=== PATIENT | female | born 1950 | race Caucasian/White ===

== ENCOUNTER 2019-05-09 18:10 | Emergency (ER) | payer OTHER, MEDICARE ==
[2019-05-09 18:18] VITALS: BMI 24.4
--- NOTE | 2019-05-09 18:22 | PDOC ---
History of Present Illness - General Chief Complaint: Nasal Bleeding Stated Complaint: NOSE BLEED Time Seen by Provider: 05/09/19 18:19 - History of Present Illness Initial Comments: Erlinda Wang is a 68 y/o female presenting today with nose bleed for 1 hour [employer]. Reports that she does not have nose bleeds, but she had one on Thursday and two on Thursday. Reports that these lasted around 10 minutes before stopping. Denies hx of bleeding disorder or heavy periods. Denies headache/dizziness. Denies chest pain/shortness of breath. Past History - Past Medical History Allergies/Adverse Reactions: Allergies Allergy/AdvReac Type Severity Reaction Status Date / Time No Known Allergies Allergy Verified 05/09/19 18:19 Home Medications: Ambulatory Orders NK [No Known Home Medication] 05/09/19 COPD: No - Psycho Social/Smoking Cessation Hx Smoking History: Never smoked Hx Alcohol Use: Yes (SOCIAL) Drug/Substance Use Hx: No Review of Systems - Review of Systems Constitutional: No: Chills, Fever HEENTM: Yes: Nose Bleeding. No: Nose Pain, Nose Congestion, Throat Pain, Throat Swelling, Mouth Pain, Difficulty Swallowing, Mouth Swelling Respiratory: No: Cough, Orthopnea, Shortness of Breath, Stridor Cardiac (ROS): No: Chest Pain, Edema ABD/GI: No: Abdominal Distended, Diarrhea *Physical Exam - Vital Signs Last Vital Signs Temp Pulse Resp BP Pulse Ox 108 H 20 182/120 H 98 05/09/19 18:11 05/09/19 18:11 05/09/19 18:11 05/09/19 18:11 - Physical Exam GENERAL: Awake, alert, and oriented to person/place/time, in no acute distress_ HEAD: No signs of trauma, normocephalic, atraumatic _ EYES: PERRLA, EOMI, sclera anicteric, conjunctiva clear_ ENT: Hearing grossly normal, nares patent, oropharynx clear without exudates. No uvular deviation. Moist mucosa. Bleeding from right nare. NECK: Normal ROM, supple, no lymphadenopathy, JVD, or masses_ LUNGS: No distress, speaks in full sentences, clear to auscultation bilaterally _ HEART: Regular rate and rhythm, normal S1 and S2, no murmurs appreciated, peripheral pulses normal and equal bilaterally._ EXTREMITIES: Normal inspection, Normal range of motion, no edema. No clubbing or cyanosis_ NEUROLOGICAL: Cranial nerves II through XII grossly intact. Normal speech, normal gait, no focal sensorimotor deficits _ SKIN: Warm, Dry, normal turgor, no rashes or lesions noted_ Medical Decision Making - Medical Decision Making 05/09/19 18:15 68F presenting today with nose bleed for the past hour. Reports that she had one on Thursday and two on Thursday. Made an appt with an ENT for tomorrow. Patient instructed to hold manual pressure on nose for 30 min while in the ED. Will reassess. 05/09/19 18:53 Pt reassessed. Bleeding from nose continues. Afrin spray applied. Will continue to hold pressure. 05/09/19 19:55 Pt reassessed. Silver nitrite cautery applied. Bleeding controlled. Plan to d/c home with ENT f/u tomorrow. All questions answered. Return precautions given. Pt verbalized understanding and agreement with plan. Discharge - Discharge Information Problems reviewed: Yes Clinical Impression/Diagnosis: Epistaxis Condition: Stable Disposition: HOME - Admission No - Follow up/Referral Referrals: Buddy Alfaro [Primary Care Provider] - Shaka Hamlin [Non Staff, Medical] - - Patient Discharge Instructions Patient Printed Discharge Instructions: DI for Nosebleed Additional Instructions: Please keep your follow up appointment with Dr. Hamlin (ENT) tomorrow. If you experience any new, worsening, or concerning symptoms, including worsening nose bleed, dizziness, nausea, or any other concerns, please return to the emergency room. - Post Discharge Activity
[2019-05-09] MEDS ORDERED: OXYMETAZOLINE 0.05% NASAL SOLUTION 15 ML BOTTLE NS ONE ×2 (18:38→18:39)
--- NOTE | 2019-05-09 18:57 | PDOC ---
Attending Attestation - Resident Resident Name: Anil Nichols - ED Attending Attestation I have performed the following: I have examined & evaluated the patient, The case was reviewed & discussed with the resident, I agree w/resident's findings & plan, Exceptions are as noted - HPI HPI: 05/09/19 18:56 68 years old with 3-day history of intermittent nosebleeds that have stopped during the episodes on the weekends today continues despite applying pressure Not on any anticoagulation no history of trauma well-appearing no apparent distress no other symptoms Insert my ROS statement - Physicial Exam PE: 05/09/19 18:56 Vitals: Triage Vital signs reviewed General Appearance: No acute distress, well nourished well developed, Head: Atraumatic, Nose: Nares patent bilaterally; active bleeding from right nostril Throat: Posterior oropharynx without erythema, mucous membranes moist, Neck: Supple; no Nucal rigidity Chest Wall: Nontender Cardiac: Regular rate and rhythym, no murmurs, no rubs, no gallops, Lungs: Clear to auscultation bilateral, good air movement bilaterally, Extremities: Full range of motion to all extremities, no cyanosis, clubbing, or edema Psych: Normal mood, normal affect - Medical Decision Making 05/09/19 18:56 Active nosebleed from right nare will apply pressure and reassess Reevaluation 655 still with bleeding. Will try Afrin and continued pressure if no improvement we will pack right nostril Dr. Noonan to follow up patient and reasses
--- NOTE | 2019-05-09 19:22 | PDOC ---
*Physical Exam - Vital Signs Last Vital Signs Temp Pulse Resp BP Pulse Ox 108 H 20 182/120 H 98 05/09/19 18:11 05/09/19 18:11 05/09/19 18:11 05/09/19 18:11 Medical Decision Making - Medical Decision Making 05/09/19 19:21 Patient signed out from Dr. Dyer at 7:00 PM pending epistaxis control. 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 she has had intermittent epistaxis x several days, which pt had attributed to blowing her nose with tissue. 05/09/19 19:21 Vital Signs Temp Pulse Resp BP Pulse Ox 108 H 20 182/120 H 98 05/09/19 18:11 05/09/19 18:11 05/09/19 18:11 05/09/19 18:11 initial vitals with tachy and hypertensive, in the setting of nosebleed removed some clots afrin sprays were already applied during ED visit 05/09/19 19:56 pt had spit out some blood clots, rt anterior epistaxis identified along the septum since bleeding had slowed down. silver nitrate applied, for cauterization monitored x 10-15 minutes, no rebleeding rpt VS still Hypertensive, but downtrending 162/115 HR improved, 105, downtrended instructed to get BP rechecked with primary, instructions provided as this is likely related to her episodes of epistaxis here, so the likely trigger otherwise asympttomatic, no further indication to treat. has ENT followup scheduled for tomorrow - Dr Hamlin avoid digital manipulation or nose blowing. no abx indicated Pt to be discharged in stable condition. Patient and family made aware of clinical impression, treatment recommendations and disposition plan, return precautions discussed (including but not limited to new or persistent/worsening symptoms, pain, fevers, or signs of infection, chest pain, respiratory distress, inability to tolerate oral intake, dehydration, syncope, or neurologic changes). Follow up with PMD and/or specialist as recommended, follow up information provided, take medications as instructed for duration of time. continue with supportive care, avoid triggers and precipitants. All questions answered to patient's satisfaction and expressed understanding and comfort with this. At the time of discharge, the patient is alert, clinically improved, tolerating po and verbalizes understanding of instructions, satisfied with the care received and felt comfortable with the plan. Patient does not suffer from an acute life- threatening medical condition at this time and is safe for outpatient follow- up. 05/09/19 20:04 Discharge - Discharge Information Problems reviewed: Yes Clinical Impression/Diagnosis: Epistaxis, Anterior epistaxis, Hypertension Condition: Improved Disposition: HOME - Admission No - Follow up/Referral Referrals: Buddy Alfaro [Primary Care Provider] - Shaka Hamlin [Non Staff, Medical] - - Patient Discharge Instructions Patient Printed Discharge Instructions: DI for High Blood Pressure, DI for Nosebleed Additional Instructions: Please keep your follow up appointment with Dr. Hamlin (ENT) tomorrow. Please follow up with your PCP for your high blood pressure. If you experience any new, worsening, or concerning symptoms, including worsening nose bleed, dizziness, nausea, or any other concerns, please return to the emergency room. - Post Discharge Activity
[2019-05-09] MEDS ORDERED: SILVER NITRATE 75% APPLIC STCK 1 PKT EACH ONE (19:37)
[2019-05-09 20:01] VITALS: BP 162/115; PULSE 105
== END 2019-05-09 20:08 | disposition home or self-care (01) ==
LOC: FER 18:10
PROC: 093K7ZZ Control Bleeding in Nasal Mucosa and Soft Tissue, Via Natural or Artificial Opening (ICD-10-PCS; principal; 2019-05-09)
DX: R04.0 Epistaxis (principal)
CPT/HCPCS: 99283-25